=== PATIENT | male | born 1960 | race Caucasian/White ===

== ENCOUNTER 2018-07-17 13:24 | Emergency (ER) | payer BC ==
[~2018-07-17] VITALS: Ht 180.3 cm; Wt 97.5 kg
--- NOTE | 2018-07-17 13:49 | NUR ---
PT A/OX4, PRESENTS TO THE ER STATING HE WAS SEEN AT AN URGENT CARE 6 DAYS AGO AND DIAGNOSED W/ CELLULITIS OF THE NASAL BRIDGE AND PRESCRIBED CLINDAMYCIN. PT REPORTS THAT THE SYMPTOMS HAVE BEEN IMPROVING. PT REPORTS NON-PROVOKED PAIN, BURNING/PRESSURE PAIN OF THE FACE, DOES NOT RADIATE, 7/10, CONSTANT. VSS. PT DENIES C/P, SOB, N/V/D, DIZZINESS, HEADACHE. ER MD AT BEDSIDE FOR MSE.
--- NOTE | 2018-07-17 14:05 | NUR ---
JALYN ARENAS AT BEDSIDE FOR PT UPDATE.
[2018-07-17] MEDS ORDERED: VANCOMYCIN IV 200 ML ONE (14:22)
[2018-07-17] MEDS ORDERED: VANCOMYCIN IV 1,000 MG in IV DEXTROSE 5% 250 ML IV ONE (14:30)
--- NOTE | 2018-07-17 15:54 | NUR ---
Patient discharged to home in stable conditon. Written and verbal after care instructions given. Patient verbalizes understanding of instructions. ALL BELONGINGS W/ PT. PT D/C W/ PRESCRIPTION. PT SELF-AMBULATED W/O DIFFICULTY. 20G IV ACCESS IN LAC REMOVED PRIOR TO D/C - INNER CANNULA INTACT.
[2018-07-17 15:55] VITALS: BP 128/75
== END 2018-07-17 15:55 | disposition home or self-care (01) ==
LOC: ER 13:24
DX: J34.0 Abscess, furuncle and carbuncle of nose (principal); E78.5 Hyperlipidemia, unspecified
CPT/HCPCS: 96365; 99283; J3370; A4663